=== PATIENT | female | born 1975 | race Caucasian/White ===

== ENCOUNTER 2024-03-15 08:30 | Outpatient (CLI) | payer BC | END 2024-03-15 08:31 | disposition home or self-care (01) | LOC: BICRAD 08:30 | PROVIDERS: ATTEND Internal Medicine | DX: R76.12 Nonspecific reaction to cell mediated immunity measurement of gamma interferon antigen response without active tuberculosis (principal); R89.4 Abnormal immunological findings in specimens from other organs, systems and tissues | CPT/HCPCS: 71046 ==